=== PATIENT | male | born 1950 | race Caucasian/White ===

== ENCOUNTER → 2022-10-20 07:08 | Outpatient (CLI) | payer MEDICARE, SELFPAY ==
[2022-10-20 09:00] LABS: Add Manual Diff / Slide Review NO; Basophils Absolute Auto 0 /uL (0-100); Basophils Percent Auto 0.4 % (0-2); Eosinophils Absolute Auto 100 /uL (0-450); Eosinophils Percent Auto 1.7 % (2-4); Hematocrit 44.9 % (41-53); Hemoglobin 15.4 g/dL (13.5-17.5); Lymphocytes Absolute Auto 2300 /uL (1100-4500); Lymphocytes Percent Auto 36.6 % (25-40); Mean Corpuscular HGB Conc 34.3 % (30-36); Mean Corpuscular Hemoglobin 32.1 PG (26-34); Mean Corpuscular Volume 93.5 fL (80-100); Monocytes Absolute Auto 600 /uL (0-900); Monocytes Percent Auto 9.1 % (3-14); Neutrophils Absolute Auto 3200 /uL (1500-7000); Neutrophils Percent Auto 52.2 % (50-75); Platelet Count 235 X10^3/uL (150-400); Red Cell Distribution Width 14.1 % (11.6-14.8); White Blood Cell Count 6.2 X10^3/uL (4.5-11.0)
[2022-10-20 11:27] LABS: TSH w/ Reflex to FT4 4.02 uIU/mL (0.47-4.68)
[2022-10-21 17:15] LABS: Alanine Aminotransferase 27 IU/L (<50); Albumin 3.8 g/dL (3.5-5.0); Albumin Globulin Ratio 1.4 (1.0-2.8); Alkaline Phosphatase 86 U/L (38-126); Aspartate Aminotransferase 26 IU/L (17-59); Bilirubin Total 0.6 mg/dL (0.2-1.3); Blood Urea Nitrogen 16 mg/dL (9-20); Calcium 8.6 mg/dL (8.4-10.2); Carbon Dioxide 27 mmol/L (22-32); Chloride 103 mmol/L (98-107); Cholesterol 275 mg/dL (140-199); Estimated Glomerular Filt Rate > 60 mL/min (>60); Globulin 2.8 g/dL (1.7-4.1); Glucose 82 mg/dL (80-110); HDL Cholesterol 51 mg/dL (40-60); HEMOLYSIS < 15 (0-50); LDL Cholesterol Calculated 184 mg/dL (<100); Potassium 4.3 mmol/L (3.4-5.1); Sodium 134 mmol/L (137-145); Total Protein 6.6 g/dL (6.3-8.2); Triglycerides 199 mg/dL (35-150)
== END ==
PROVIDERS: PCP Family Medicine; Referring Provider Family Medicine; Visit Provider Family Medicine
DX: E78.2 Mixed hyperlipidemia (principal); N40.1 Benign prostatic hyperplasia with lower urinary tract symptoms; F51.01 Primary insomnia; G89.29 Other chronic pain; I10 Essential (primary) hypertension; N13.8 Other obstructive and reflux uropathy; R51.9 Headache, unspecified
CPT/HCPCS: 36415; 80053; 80061; 84153; 84443; 85025

== ENCOUNTER → 2023-10-06 12:48 | Outpatient (CLI) | payer MEDICARE, SELFPAY ==
[2023-10-06 19:35] LABS: Alanine Aminotransferase 18 IU/L (<50); Albumin 4.3 g/dL (3.5-5.0); Albumin Globulin Ratio 1.6 (1.0-2.8); Alkaline Phosphatase 63 U/L (38-126); Aspartate Aminotransferase 27 IU/L (17-59); BUN Creatinine Ratio 18.8 (6-22); Bilirubin Total 0.8 mg/dL (0.2-1.3); Blood Urea Nitrogen 19 mg/dL (9-20); C-Reactive Protein Quant 0.6 mg/dL (<1.0); Calcium 9.3 mg/dL (8.4-10.2); Carbon Dioxide 26 mmol/L (22-32); Chloride 103 mmol/L (98-107); Estimated Glomerular Filt Rate > 60 mL/min (>60); Globulin 2.7 g/dL (1.7-4.1); Glucose 101 mg/dL (80-110); HEMOLYSIS 23 (0-50); Potassium 4.5 mmol/L (3.4-5.1); Sodium 136 mmol/L (137-145)
[2023-10-06 19:35] LABS: Add Manual Diff / Slide Review NO; Basophils Absolute Auto 0 /uL (0-100); Basophils Percent Auto 0.4 % (0-2); Eosinophils Absolute Auto 100 /uL (0-450); Eosinophils Percent Auto 0.9 % (2-4); Hematocrit 47.5 % (41-53); Hemoglobin 16.2 g/dL (13.5-17.5); Lymphocytes Absolute Auto 1700 /uL (1100-4500); Mean Corpuscular HGB Conc 34.1 % (30-36); Mean Corpuscular Volume 93.8 fL (80-100); Monocytes Absolute Auto 500 /uL (0-900); Monocytes Percent Auto 7.7 % (3-14); Neutrophils Absolute Auto 4200 /uL (1500-7000); Platelet Count 252 X10^3/uL (150-400); Red Blood Cell Count 5.06 X10^6/uL (4.5-5.9); White Blood Cell Count 6.5 X10^3/uL (4.5-11.0)
[2023-10-06 19:54] LABS: TSH w/ Reflex to FT4 2.25 uIU/mL (0.47-4.68)
[2023-10-06 20:35] LABS: Erythrocyte Sedimentation Rate 1 MM/HR (0-15)
== END ==
PROVIDERS: PCP Physician Assistant; Visit Provider Physician Assistant Medical
DX: R51.9 Headache, unspecified (principal); R42 Dizziness and giddiness
CPT/HCPCS: 80053; 84443; 85025; 85651; 86140

== ENCOUNTER 2023-10-10 18:29 | Emergency (ER) | payer MEDICARE, SELFPAY ==
[2023-10-10] VITALS (10 sets, daily range): BP systolic 134–181; BP diastolic 82–88; PULSE 64–89; RESP 15–40; TEMP 36.8; O2SAT 95–99; BMI 23.6
--- NOTE | 2023-10-10 18:39 | DI.CT.S_ITS ---
PROCEDURE: CT ANGIO HEAD AND NECK INDICATIONS: Headache and ataxia TECHNIQUE: After the administration of intravenous contrast, 1 mm thick sections acquired from the aortic arch through the [place]. 3-dimensional gogidgj-utoedizud-aymaqfjrza (MIP) and/or volume rendering reformats were acquired of the central intracranial vasculature and neck separately. For radiation dose reduction, the following was used: automated exposure control, adjustment of mA and/or kV according to patient size. COMPARISON: [facility], CT, CT HEAD/BRAIN WO CON, 10/10/2023, 18:43. FINDINGS: Image quality: Diagnostic. BRAIN: CSF spaces: Ventricles are normal in size and shape. Basal cisterns are patent. No extra-axial fluid collections. Brain: Mildly enhancing bilateral cerebral hemisphere and at least right Skull and face: Calvarium and facial bones appear intact, without suspicious lesions. Orbits appear normal. Sinuses: Sinuses and mastoids are clear. HEAD CT ANGIOGRAPHY: Anterior circulation: Intracranial internal carotid arteries are normal in size and flow. The flow within the paired anterior cerebral arteries is normal and symmetric. The flow within the middle cerebral arteries is normal and symmetric. The anterior communicating artery is seen. No aneurysms are seen. Posterior circulation: Visualized portions of the vertebral arteries demonstrate normal caliber, and join to form a normal appearing basilar artery. Flow within the posterior cerebral arteries is normal and symmetric. No aneurysms are seen. NECK CT ANGIOGRAPHY: Carotid system: The great vessels demonstrate a conventional anatomy as they arise from the aortic arch. The origins of the common carotid arteries appear patent. The common carotid arteries demonstrate normal caliber and courses. The bifurcation regions are both widely patent. The internal carotid arteries demonstrate normal calibers and courses. Posterior circulation: The origins of the vertebral arteries both appear widely patent. The more superior extracranial portions of both vertebral arteries also demonstrate normal courses and calibers. They join to form a normal appearing basilar artery. Soft tissues: Visualized neck soft tissues demonstrate no suspicious abnormalities. Bilateral pulmonary nodules are seen within the visualized lungs, with largest seen on the right measuring 11 mm. Bones: Potential lytic lesions can be seen involving the cervical spine the thoracic spine. Visualized cervical spine appears normally aligned. IMPRESSION: Within the arteries of the neck, no hemodynamically significant stenosis can be seen. No significant intracranial arterial abnormality is seen. Enhancing bilateral cerebral hemisphere and at least right cerebellar metastases can be seen. Pulmonary nodules are seen, which are also attributed to metastatic disease. Potential additional lytic metastatic disease seen within the bones. Note: Case discussed by telephone with Dr. Alves at 7:26 p.m. [place] time on October 10, 2023. Any quantitative measurements of stenosis were performed using NASCET criteria. Dictated by: Burt Cruz M.D. on 10/10/2023 at 18:27 Approved by: Burt Cruz M.D. on 10/10/2023 at 18:30
--- NOTE | 2023-10-10 18:39 | DI.CT.S_ITS ---
PROCEDURE: CT HEAD/BRAIN WO CON INDICATIONS: Headache and ataxia TECHNIQUE: Noncontrast 4.5 mm thick angled axial sections acquired from the foramen magnum to the vertex, with coronal and sagittal reformats. For radiation dose reduction, the following was used: automated exposure control, adjustment of mA and/or kV according to patient size. COMPARISON: [facility], CT, CT ANGIO HEAD AND NECK, 10/10/2023, 18:43. FINDINGS: Image quality: Excellent. CSF spaces: Basal cisterns are patent. No extra-axial fluid collections. The ventricles are symmetric in size and shape. Brain: There are. Hyperdense masses within the posterior cerebral hemispheres, with surrounding edema, measuring to 2.2 cm right and to 1.4 cm. Similar irregular edema can be seen within the right cerebellum. Irregular low density can be seen within nataly. There is a high density lesion seen within the left temporal lobe medially, as on series 2, image 10 measuring 13 mm. Additional smaller masses can be seen elsewhere on both sides. No intracranial bleeds or masses. There is cerebral volume loss for age, with resultant ventricular and sulcal prominence. There are periventricular and deep white matter chronic small vessel ischemic changes. There is intracranial internal carotid artery atherosclerosis. Skull and face: Calvarium and visualized facial bones appear intact, without suspicious lesions. Sinuses: Visualized sinuses and mastoids are clear. IMPRESSION: Intracranial metastatic disease. No superimposed hemorrhage can be seen. If it would be helpful for clinical management decision making, please consider a dedicated, scheduled brain MRI for further evaluation (assuming that there is no contraindication). Note: Case discussed by telephone with Dr. Alves at 7:26 p.m. [place] time on October 10, 2023. Dictated by: Burt Cruz M.D. on 10/10/2023 at 18:21 Approved by: Burt Cruz M.D. on 10/10/2023 at 18:27
[2023-10-10 18:45] LABS: Add Manual Diff / Slide Review NO; Basophils Absolute Auto 0 /uL (0-100); Basophils Percent Auto 0.5 % (0-2); Eosinophils Absolute Auto 100 /uL (0-450); Hematocrit 47.1 % (41-53); Hemoglobin 15.9 g/dL (13.5-17.5); Lymphocytes Absolute Auto 2300 /uL (1100-4500); Lymphocytes Percent Auto 31.8 % (25-40); Mean Corpuscular HGB Conc 33.7 % (30-36); Mean Corpuscular Hemoglobin 31.6 PG (26-34); Mean Corpuscular Volume 93.6 fL (80-100); Monocytes Absolute Auto 600 /uL (0-900); Monocytes Percent Auto 8.9 % (3-14); Neutrophils Absolute Auto 4200 /uL (1500-7000); Neutrophils Percent Auto 57.8 % (50-75); Platelet Count 246 X10^3/uL (150-400); Red Blood Cell Count 5.03 X10^6/uL (4.5-5.9); Red Cell Distribution Width 14.2 % (11.6-14.8); White Blood Cell Count 7.3 X10^3/uL (4.5-11.0)
[2023-10-10 18:57] LABS: Alanine Aminotransferase 27 IU/L (<50); Albumin 4.4 g/dL (3.5-5.0); Albumin Globulin Ratio 1.4 (1.0-2.8); Alkaline Phosphatase 58 U/L (38-126); Aspartate Aminotransferase 32 IU/L (17-59); BUN Creatinine Ratio 18.6 (6-22); Bilirubin Total 0.6 mg/dL (0.2-1.3); Blood Urea Nitrogen 19 mg/dL (9-20); Carbon Dioxide 25 mmol/L (22-32); Chloride 104 mmol/L (98-107); Estimated Glomerular Filt Rate > 60 mL/min (>60); Globulin 3.1 g/dL (1.7-4.1); Glucose 140 mg/dL (80-110); HEMOLYSIS 18 (0-50); Lipase 242 U/L (23-300); Potassium 4.1 mmol/L (3.4-5.1); Sodium 136 mmol/L (137-145); Total Protein 7.5 g/dL (6.3-8.2)
--- NOTE | 2023-10-10 19:34 | ED.NEUROSD ---
HPI - Neuro Symptoms/Deficit General Chief Complaint: Neuro Symptoms/Deficit Stated Complaint: headache/unsteadiness Time Seen by Provider: 10/10/23 18:38 Source: patient Mode of arrival: Ambulatory History of Present Illness HPI Narrative: Patient is a 72-year-old male. Relatively healthy. Not on blood thinners. Proximally 3 weeks ago he was woken up in the middle of the night with a headache. He does not get headaches on a regular basis. He states that his headache has been consistent since then and progressively worsening. He did see his primary care doctor who advised that he come to the emergency department for evaluation however he was going to travel to [place] to visit his son for the so he decided to hold on coming to the ER. He was able to go to [place] however he states that while he was there he felt very unsteady on his feet. He did not specifically think that it was weakness but maybe more coordination issues. He states he would a hard time navigating get an on and off the escalator at the airport. He thinks that it is more issues with his lower extremities in his upper extremities. He was unable to drive because he felt unsafe to do so. Over the past 24 hours he now his having issues walking and balance issues with walking. He denies any vision changes. No numbness or tingling in his upper and lower extremities. No chest pain, shortness of breath, abdominal pain, nausea vomiting, urinary symptoms or change in bowel habits. No skin changes. Denies any trauma. On Anticoagulants: No Related Data Previous Rx's Medication Instructions Recorded lisinopril 10 mg tablet 10 mg PO DAILY #90 tabs 06/22/23 rosuvastatin 10 mg tablet (Crestor) 10 mg PO DAILY #90 tabs 06/22/23 diazepam 2 mg tablet 2 mg PO BID PRN anxiety #14 tabs 10/06/23 dexamethasone 4 mg tablet 4 mg PO Q6H #30 tabs 10/10/23 hydrocodone 5 mg-acetaminophen 325 1 tab PO Q4-6H PRN pain #30 tabs 10/10/23 mg tablet levetiracetam 500 mg tablet 500 mg PO BID #60 tabs 10/10/23 (Keppra) Allergies Allergy/AdvReac Type Severity Reaction Status Date / Time No Known Drug Allergies Allergy Verified 10/10/23 18:39 Review of Systems Review of Systems ROS Unobtainable: All systems reviewed & are unremarkable except as noted in HPI and below Hematologic/Lymphatic On Anticoagulants: No Patient History Medical History Mumps (~1954) Measles (~1954) Chicken pox (~1954) Kidney stones (~1971) Insomnia BPH (benign prostatic hyperplasia) Headache Multiple nevi History of basal cell carcinoma Hypertension Hyperlipidemia Family History (Updated 11/05/22 @ 20:04 by Vicky Moore) Father History of heart disease Grandfather History of heart disease Social History Smoking Status: Never smoker Smoking Status: Never smoker alcohol intake frequency: holidays/special occasions only Substance Use Type: does not use Exam Initial Vital Signs Initial Vital Signs: Vital Signs Temperature 98.2 F 10/10/23 18:33 Pulse Rate 81 10/10/23 18:33 Respiratory Rate 15 10/10/23 18:33 Blood Pressure 181/82 H 10/10/23 18:33 Pulse Oximetry 99 10/10/23 18:33 Oxygen Delivery Method Room Air 10/10/23 18:33 Const General: cooperative, comfortable and No ill appearing HENMT Head: normal to inspection and normocephalic Face and sinus: normal facial exam Eyes General: Yes appearance normal, both eyes and all related structures Resp Effort & Inspection: normal respiratory effort Auscultation: clear to auscultation bilaterally Cardio Rate: regular rate Rhythm: regular rhythm GI Inspection: normal to inspection and non-distended Skin General: no rashes or lesions noted Neuro General: patient alert, patient awake, patient oriented x3 and moves all extremities Cranial Nerves: CN's II-XI intact bilaterally Cognition: normal cognition Speech: speech normal Gait: ataxic Motor: muscle tone normal throughout and no pronator drift Sensory Exam: no sensory deficits noted Coordination: [id number]-[id number] test normal and wrah-fe-[id number] test normal Extrem General: normal to inspection, capillary refill normal and No edema Scores GCS Paulina coma scale eye opening: Spontaneous Kari coma scale verbal response: Orientated Kari coma scale motor response: Obey commands Kari coma scale total score: 15 Course Orders Ordered: ED Orders 10/10/23 18:38 CEA [Carcinoembryonic Antigen] Stat Complete Blood Count AUTO DIFF Stat Comprehensive Metabolic Panel Stat Lipase Stat PSA [Prostate Specific Antigen] Stat 10/10/23 18:39 CT angio head and neck Stat CT head/brain wo con Stat 10/10/23 19:34 CT chest abd pel w con Stat 10/10/23 21:45 Hepatitis Acute Panel Stat Discontinued Medications Acetaminophen (Acetaminophen 325 Mg Tablet) 650 mg PO NOW ONE Stop: 10/10/23 20:26 Last Admin: 10/10/23 20:28 Dose: 650 mg Documented By: KRISTEN Hydrocodone Bitart/Acetaminophen (Hydrocodone/Acet 5/325 Prepack) 1 bottle MISC DIRECTED ONE Stop: 10/10/23 21:43 Last Admin: 10/10/23 21:49 Dose: 1 bottle Documented By: KRISTEN Dexamethasone (Dexamethasone 4 Mg Tablet) 4 mg PO NOW ONE Stop: 10/10/23 21:26 Last Admin: 10/10/23 21:37 Dose: 4 mg Documented By: MINISTERIO Sodium Chloride (Normal Saline 0.9%) 1,000 mls @ 1,000 mls/hr IV BOLUS ONE Stop: 10/10/23 20:34 Last Infusion: 10/10/23 21:14 Dose: Infused Documented By: Admin: 10/10/23 20:14 Dose: 1,000 mls/hr Documented By: KRISTEN Levetiracetam 500 mg/ Sodium (Chloride) 105 mls @ 420 mls/hr IV NOW ONE Stop: 10/10/23 21:26 Last Infusion: 10/10/23 22:05 Dose: Infused Documented By: Admin: 10/10/23 21:42 Dose: 420 mls/hr Documented By: MINISTERIO Vital Signs Vital signs: Vital Signs - 8 hr 10/10/23 18:33 10/10/23 18:35 10/10/23 18:36 Temperature 98.2 F Pulse Rate 81 80 74 Respiratory Rate 15 Blood Pressure 181/82 H Pulse Oximetry 99 99 99 Oxygen Delivery Method Room Air 10/10/23 18:36 10/10/23 19:57 10/10/23 20:00 Temperature Pulse Rate 89 81 Respiratory Rate 21 Blood Pressure 181/82 H Pulse Oximetry 98 97 Oxygen Delivery Method 10/10/23 20:30 10/10/23 21:00 10/10/23 21:30 Temperature Pulse Rate 68 72 64 Respiratory Rate 21 22 22 Blood Pressure Pulse Oximetry 97 95 95 Oxygen Delivery Method 10/10/23 22:00 10/10/23 22:12 10/10/23 22:12 Temperature Pulse Rate 64 69 Respiratory Rate 23 40 H Blood Pressure 134/88 Pulse Oximetry 95 Oxygen Delivery Method MDM - Neuro Symptoms/Deficit Lab Data Attestation: I reviewed the patient's lab results. 10/10/23 18:38 10/10/23 18:38 Labs: Lab Results 10/10/23 Range/Units 18:38 WBC 7.3 (4.5-11.0) X10^3/uL RBC 5.03 (4.5-5.9) X10^6/uL Hgb 15.9 (13.5-17.5) g/dL Hct 47.1 (41-53) % MCV 93.6 (80-100) fL MCH 31.6 (26-34) PG MCHC 33.7 (30-36) % RDW 14.2 (11.6-14.8) % Plt Count 246 (150-400) X10^3/uL Neut % (Auto) 57.8 (50-75) % Lymph % (Auto) 31.8 (25-40) % [place]ton % (Auto) 8.9 (3-14) % Eos % (Auto) 1.0 L (2-4) % Baso % (Auto) 0.5 (0-2) % Neut # (Auto) 4200 (7738-6162) /uL Lymph # (Auto) 2300 (2130-1780) /uL [place]ton # (Auto) 600 (0-900) /uL Eos # (Auto) 100 (0-450) /uL Baso # (Auto) 0 (0-100) /uL Sodium 136 L (137-145) mmol/L Potassium 4.1 (3.4-5.1) mmol/L Chloride 104 (98-107) mmol/L Carbon Dioxide 25 (22-32) mmol/L BUN 19 (9-20) mg/dL Creatinine 1.02 (0.66-1.25) mg/dL Estimated GFR > 60 (>60) mL/min BUN/Creatinine Ratio 18.6 (6-22) Glucose 140 H (80-110) mg/dL Calcium 9.0 (8.4-10.2) mg/dL Total Bilirubin 0.6 (0.2-1.3) mg/dL AST 32 (17-59) IU/L ALT 27 (<50) IU/L Alkaline Phosphatase 58 (38-126) U/L Total Protein 7.5 (6.3-8.2) g/dL Albumin 4.4 (3.5-5.0) g/dL Globulin 3.1 (1.7-4.1) g/dL Albumin/Globulin Ratio 1.4 (1.0-2.8) Lipase 242 (23-300) U/L Carcinoembryonic Ag 2.4 (0.1-3.0) ng/mL Prostate Specific Ag 0.686 (0.10-4.00) ng/mL Imaging Data CT scan - head: Radiologist's Impression: PROCEDURE: CT HEAD/BRAIN WO CON INDICATIONS: Headache and ataxia TECHNIQUE: Noncontrast 4.5 mm thick angled axial sections acquired from the foramen magnum to the vertex, with coronal and sagittal reformats. For radiation dose reduction, the following was used: automated exposure control, adjustment of mA and/or kV according to patient size. COMPARISON: [facility], CT, CT ANGIO HEAD AND NECK, 10/10/2023, 18:43. FINDINGS: Image quality: Excellent. CSF spaces: Basal cisterns are patent. No extra-axial fluid collections. The ventricles are symmetric in size and shape. Brain: There are. Hyperdense masses within the posterior cerebral hemispheres, with surrounding edema, measuring to 2.2 cm right and to 1.4 cm. Similar irregular edema can be seen within the right cerebellum. Irregular low density can be seen within nataly. There is a high density lesion seen within the left temporal lobe medially, as on series 2, image 10 measuring 13 mm. Additional smaller masses can be seen elsewhere on both sides. No intracranial bleeds or masses. There is cerebral volume loss for age, with resultant ventricular and sulcal prominence. There are periventricular and deep white matter chronic small vessel ischemic changes. There is intracranial internal carotid artery atherosclerosis. Skull and face: Calvarium and visualized facial bones appear intact, without suspicious lesions. Sinuses: Visualized sinuses and mastoids are clear. IMPRESSION: Intracranial metastatic disease. No superimposed hemorrhage can be seen. If it would be helpful for clinical management decision making, please consider a dedicated, scheduled brain MRI for further evaluation (assuming that there is no contraindication). CTA - brain/neck: Radiologist's Impression: PROCEDURE: CT ANGIO HEAD AND NECK INDICATIONS: Headache and ataxia TECHNIQUE: After the administration of intravenous contrast, 1 mm thick sections acquired from the aortic arch through the [place]. 3-dimensional xjpmjbg-cqqqdqpod-stsqkjpcmc (MIP) and/or volume rendering reformats were acquired of the central intracranial vasculature and neck separately. For radiation dose reduction, the following was used: automated exposure control, adjustment of mA and/or kV according to patient size. COMPARISON: [facility], CT, CT HEAD/BRAIN WO CON, 10/10/2023, 18:43. FINDINGS: Image quality: Diagnostic. BRAIN: CSF spaces: Ventricles are normal in size and shape. Basal cisterns are patent. No extra-axial fluid collections. Brain: Mildly enhancing bilateral cerebral hemisphere and at least right Skull and face: Calvarium and facial bones appear intact, without suspicious lesions. Orbits appear normal. Sinuses: Sinuses and mastoids are clear. HEAD CT ANGIOGRAPHY: Anterior circulation: Intracranial internal carotid arteries are normal in size and flow. The flow within the paired anterior cerebral arteries is normal and symmetric. The flow within the middle cerebral arteries is normal and symmetric. The anterior communicating artery is seen. No aneurysms are seen. Posterior circulation: Visualized portions of the vertebral arteries demonstrate normal caliber, and join to form a normal appearing basilar artery. Flow within the posterior cerebral arteries is normal and symmetric. No aneurysms are seen. NECK CT ANGIOGRAPHY: Carotid system: The great vessels demonstrate a conventional anatomy as they arise from the aortic arch. The origins of the common carotid arteries appear patent. The common carotid arteries demonstrate normal caliber and courses. The bifurcation regions are both widely patent. The internal carotid arteries demonstrate normal calibers and courses. Posterior circulation: The origins of the vertebral arteries both appear widely patent. The more superior extracranial portions of both vertebral arteries also demonstrate normal courses and calibers. They join to form a normal appearing basilar artery. Soft tissues: Visualized neck soft tissues demonstrate no suspicious abnormalities. Bilateral pulmonary nodules are seen within the visualized lungs, with largest seen on the right measuring 11 mm. Bones: Potential lytic lesions can be seen involving the cervical spine the thoracic spine. Visualized cervical spine appears normally aligned. IMPRESSION: Within the arteries of the neck, no hemodynamically significant stenosis can be seen. No significant intracranial arterial abnormality is seen. Enhancing bilateral cerebral hemisphere and at least right cerebellar metastases can be seen. Pulmonary nodules are seen, which are also attributed to metastatic disease. Potential additional lytic metastatic disease seen within the bones. Note: Case discussed by telephone with Dr. Alves at 7:26 p.m. [place] time on October 10, 2023. Any quantitative measurements of stenosis were performed using NASCET criteria. CT chest abdomen pelvis: Radiologist's Impression: PROCEDURE: CT CHEST ABD PEL W CON INDICATIONS: Eval for primary tumor location TECHNIQUE: After the administration of intravenous contrast, 5 mm thick sections acquired from the lung apices to the symphysis. 5 mm coronal and sagittal reformats were performed, with additional 7 mm MIP reformats through the lungs. For radiation dose reduction, the following was used: automated exposure control, adjustment of mA and/or kV according to patient size. COMPARISON: [facility], CT, CT HEAD/BRAIN WO CON, 10/10/2023, 18:43. FINDINGS: Image quality: Excellent. CHEST: Lungs and pleura: No acute airspace opacities. Innumerable pulmonary nodules are seen throughout both lungs most compatible with metastatic disease. The largest is located in the left lower lobe adjacent to the major fissure measuring 2.2 x 2.0 cm (151/3). A 2.0 by 1.6 cm nodule is seen at the left lung base (220/3). No pleural effusions or pneumothorax. Central and peripheral airways appear patent and normal in caliber. Mediastinum: Heart size is mildly enlarged. No pericardial effusion. No mediastinal or hilar adenopathy by size criteria. Thoracic aorta and central pulmonary arteries are normal in size. Esophagus is normal in caliber. No hiatal hernia. Chest wall: No axillary or supraclavicular adenopathy by size criteria. No significant thyroid nodules are seen the require dedicated imaging follow-up. ABDOMEN: Solid organs: A 1.4 cm hypoenhancing lesion is seen in segment 2 of the liver (49/2), which measures near fluid attenuation. Additional tiny subcentimeter lesions are seen in the liver that are too small to characterize. Gallbladder is unremarkable. Biliary system is non dilated. No pancreatic ductal dilatation. Small foci of probable fat are seen infiltrating along the margins of the pancreas without a definite pancreatic cyst or mass visualized. A single coarse calcification is seen in the spleen. Spleen is normal in size and enhancement. No adrenal nodules. Multiple parapelvic renal cysts, predominantly on the left. Contrast material in the renal collecting system is most likely related to the angiogram performed earlier the same day. There is a simple 3.6 cm cyst at the inferior pole of the left kidney. No suspicious solid renal mass. No hydronephrosis. Peritoneum and bowel: Mild soft tissue prominence is seen at the and rectal junction (116/2), that likely represents stool and normal nondistended bowel, although mass is difficult to exclude. Bowel loops is otherwise demonstrate normal wall thickness and caliber. No free fluid or air. Nodes and vessels: A 1.3 x 1.0 cm hypoattenuating lesion is seen along the anterior L4-5 disc space within the retroperitoneum between the aorta and IVC (86/2). No retroperitoneal or mesenteric adenopathy by size criteria. Aorta and inferior vena cava are normal in size. Miscellaneous: No ventral hernias. PELVIS: Genitourinary: Bladder wall thickness is normal. The prostate is enlarged and impinges upon the bladder base. Miscellaneous: No inguinal hernias or adenopathy. Bones: 1.5 cm densely sclerotic lesion is seen within the T9 vertebral body with attenuation value measuring approximately 1000 Hounsfield units (38/2). No vertebral body compression fractures. IMPRESSION: 1. Innumerable pulmonary nodules throughout both lungs, highly suspicious for pulmonary metastatic disease. Larger nodules are seen in the left lower lung that could be targeted for percutaneous biopsy if indicated clinically. 2. No definite primary malignancy is seen in the chest, abdomen, or pelvis. No bulky lymphadenopathy. 3. Small indeterminate lesion is seen protruding anteriorly along the anterior L4-5 intervertebral disc, which is of uncertain etiology but is favored to be arising from the disc. Consider MRI of the lumbar spine with and without contrast for further evaluation. 4. Densely sclerotic osseous lesion in the T9 vertebral body is favored to represent a benign bone island although osseous metastatic disease cannot be excluded. No definite aggressive osseous lesion is seen. 5. Mild soft tissue prominence at the anorectal junction, favored to represent normal fecal material and decompressed bowel although a rectal mass is not excluded and clinical correlation is recommended. 6. Prostatomegaly. ECG Data Attestation: I personally reviewed and interpreted this ECG as follows: Interpretation: Sinus bradycardia Ventricular rate of 59 Normal QRS Normal QTC No ST T wave changes MDM Narrative Medical decision making narrative: Neurologic exam is relatively unremarkable except that the patient did have a shuffling gait it did seem to be somewhat unsteady with walking. He was able to walk from the room to the bathroom without assistance or without falling but he admits this is not normal for him. His strength is unremarkable. Coordination is unremarkable. Head CT concerning for metastatic disease as he is multiple lesions with some surrounding edema but no midline shift. The CT scan of his chest abdomen pelvis does show multiple pulmonary nodules and potentially other signs of metastatic disease. I had a long discussion with the patient regarding these symptoms. I also discussed the case with Dr Herndon with Hematology/Oncology. He recommended further labs to include hepatitis panel, PSA and CEA. He also recommended placing the patient on dexamethasone every 6 hours. His 1st dose was given here in the ER. Because of the findings of his head CT and the risk of seizures will start the patient on Keppra as well. First dose was given here in the ER and prescription was sent for the remainder. Patient states he would like to go home. He does have a daughter who lives here locally. He was given information to contact Hematology/Oncology on Thursday. He does understand that he was going to need follow-up for this. He was given return precautions. He expressed understanding and agreement with plan. Discharge Plan Departure Patient Disposition: Home Clinical Impression: Metastasis to brain, Worsening headaches, Lung mass, Ataxia Activity Restrictions/Additional Instructions: I recommend that you take all of the medications as directed. I do recommend on Thursday you contact the Hematology/Oncology Department of the number provided below and also contact your primary doctor. Return to the emergency department for new or worsening symptoms. Prescriptions: New dexamethasone 4 mg tablet 4 mg PO Q6H Qty: 30 2RF levetiracetam [Keppra] 500 mg tablet 500 mg PO BID Qty: 60 2RF hydrocodone-acetaminophen 5-325 mg tablet 1 tab PO Q4-6H PRN (Reason: pain) Qty: 30 0RF No Action rosuvastatin [Crestor] 10 mg tablet 10 mg PO DAILY Qty: 90 1RF lisinopril 10 mg tablet 10 mg PO DAILY Qty: 90 1RF diazepam 2 mg tablet 2 mg PO BID PRN (Reason: anxiety) Qty: 14 0RF Referrals: Tianna Bejarano PA-C [Primary Care Provider] - Martinez Herndon MD [Non-Staff] - Stand Alone Forms: Patient Portal/API
[2023-10-10] MEDS: SODIUM CHLORIDE 0.9% 1,000 ML 1000 ML IV (20:14)
[2023-10-10] MEDS: ACETAMINOPHEN 325 MG TABLET 650 MG PO (20:28)
[2023-10-10] MEDS: dexAMETHasone 4 MG TABLET PO (21:37)
[2023-10-10] MEDS: levETIRAcetam 500 MG in SODIUM CHLORIDE 0.9% 100 ML 420 MG IV (21:42)
[2023-10-10] MEDS: HYDROCODONE/ACET 5/325 PREPACK 1 BOTTLE MISC (21:49)
[2023-10-10 22:52] LABS: Carcinoembryonic Antigen 2.4 ng/mL (0.1-3.0); Prostate Specific Antigen 0.686 ng/mL (0.10-4.00)
[2023-10-12 11:47] LABS: HBsAg Screen Negative (Negative); Hepatitis A Antibody IgM Negative (Negative); Hepatitis B Core Antibody IgM Negative (Negative); Hepatitis C Antibody Non Reactive (Non Reactive)
== END 2023-10-10 22:18 | disposition home or self-care (01) ==
PROVIDERS: Emergency Provider Emergency Medicine; PCP Physician Assistant
DX: C79.31 Secondary malignant neoplasm of brain (principal); R91.8 Other nonspecific abnormal finding of lung field; R27.0 Ataxia, unspecified
CPT/HCPCS: 36415; 70450; 70496; 70498; 71260; 74177; 80053; 80074; 82378; 83690; 84153; 85025; 93005; 93010; 96374; 99284; J1953; Q9967